=== PATIENT | female | born 1985 | race African-American/Black ===

== ENCOUNTER 2016-08-27 16:57 | Emergency (ER) | payer MEDICAID ==
[~2016-08-27] VITALS: Ht 160 cm; Wt 66.0 kg
[2016-08-27 17:02] VITALS: BP 117/80
[2016-08-27] MEDS ORDERED: CYCLOBENZAPRINE 10MG TABLET PO ONE (18:00)
== END 2016-08-27 17:40 | disposition home or self-care (01) ==
LOC: ER 16:58
DX: S13.9XXA Sprain of joints and ligaments of unspecified parts of neck, initial encounter (principal); S33.8XXA Sprain of other parts of lumbar spine and pelvis, initial encounter; S60.222A Contusion of left hand, initial encounter; S00.83XA Contusion of other part of head, initial encounter; V43.52XA Car driver injured in collision with other type car in traffic accident, initial encounter; Y92.488 Other paved roadways as the place of occurrence of the external cause
CPT/HCPCS: 99283